=== PATIENT | male | born 1990 | race African-American/Black ===

== ENCOUNTER 2023-10-14 22:23 | Emergency (ER) | payer OTHER ==
[~2023-10-14] VITALS: Ht 182.9 cm; Wt 86.2 kg
[2023-10-14 22:37] VITALS: BP 119/88; TEMP 98.4; O2SAT 98
[2023-10-14] MEDS ORDERED: diphenhydrAMINE HCL 50 MG/ML VIAL ONE (22:53)
[2023-10-14] MEDS ORDERED: predniSONE 20 MG TABLET ONE (22:53)
[2023-10-14] MEDS: predniSONE 50 MG TABLET PO ONE (22:59)
[2023-10-14] MEDS: diphenhydrAMINE HCL 50 MG/ML VIAL IM ONE (23:02)
[2023-10-14 23:21] LABS: BASOPHILS % (AUTO) 0.3 % (0.0-2.0); EOSINOPHILS # (AUTO) 0.1 K/uL (0.0-0.7); EOSINOPHILS % (AUTO) 1.6 % (0.0-6.0); HEMATOCRIT 45 % (39-51); HEMOGLOBIN 15.5 g/dL (13.5-17.5); LYMPHOCYTES # (AUTO) 2.1 K/uL (0.8-4.8); LYMPHOCYTES % (AUTO) 33.9 % (20.0-44.0); MEAN CORPUSCULAR HEMOGLOBIN 30 PG (26.0-33.0); MEAN CORPUSCULAR HGB CONC 35 g/dl (31.0-36.0); MEAN CORPUSCULAR VOLUME 88 fL (80-96); MONOCYTES # (AUTO) 0.9 K/uL (0.1-1.30); MONOCYTES % (AUTO) 15.1 % (2.0-12.0); NEUTROPHILS % (AUTO) 49.1 % (43.0-81.0); PLATELET COUNT (AUTO) 196 K/uL (150-450); WHITE BLOOD COUNT (AUTO) 6.1 K/uL (4.3-11.0)
[2023-10-14 23:31] LABS: CALCIUM, SERUM 9.3 mg/dL (8.5-10.1); CREATININE 1.2 mg/dL (0.6-1.3); POTASSIUM 3.9 mmol/L (3.5-5.1)
[2023-10-14 23:37] LABS: ALBUMIN 3.9 g/dL (3.4-5.0); BILIRUBIN,TOTAL 1.4 mg/dL (0.2-1.0); TOTAL PROTEIN, SERUM 7.6 g/dL (6.4-8.2)
[2023-10-14 23:39] LABS: LACTIC ACID 0.9 mmol/L (0.4-2.0)
[2023-10-15] MEDS ORDERED: DIPH50CA4 PO (00:02)
[2023-10-15] MEDS ORDERED: PRED50TA PO (00:02)
[2023-10-15 00:21] LABS: EOSINOPHILS % (MANUAL) 1 % (0-4); LYMPHOCYTES % (MANUAL) 45 % (16-48); MONOCYTES % (MANUAL) 14 % (0-11.0); NEUTROPHILS % (MANUAL) 40 (42-76); PLATELET ESTIMATE ADEQUATE
[2023-10-15 00:22] LABS: ANISOCYTOSIS 1+
[2023-10-15 14:42] LABS: HIV-1 p24 ANTIGEN NON REACTIVE (NONREACTIVE); HIV-1/2 ANTIBODY NON REACTIVE (NONREACTIVE)
== END 2023-10-15 00:20 | disposition home or self-care (01) ==
LOC: ER 22:28
DX: R22.9 Localized swelling, mass and lump, unspecified (principal); T78.40XA Allergy, unspecified, initial encounter; Z60.2 Problems related to living alone; X58.XXXA Exposure to other specified factors, initial encounter
CPT/HCPCS: 99283; 96372; 85025; 83605; 36415 ×2; 80053; 87806; 85007; J1200; J7512